=== PATIENT | male | born 1960 | race Caucasian/White ===

== ENCOUNTER 2018-05-09 08:01 | Day surgery (SDC) | payer OTHER ==
[2018-04-30 14:37] VITALS: BMI 31.8
[2018-05-09] MEDS ORDERED: PROPOFOL 20 ML ONE ×2 (09:34)
[2018-05-09 11:13] VITALS: TEMP 97.5
[2018-05-09 11:15] VITALS: BP 133/79; PULSE 66
--- NOTE | 2018-05-14 16:06 | PATH ---
Surgical Pathology Report Patient Name: MARITA IRAHETA [facility]. Rec. #: [id number] /Age/Gender: 1960 (Age: 58) / M Account: [id number] Location: [facility] Taken: 05/09/2018 Received: 05/09/2018 Reported: 05/14/2018 Physicians: Felipe Swanson M.D. Specimen(s) Received A: HEPATIC FLEXURE B: MID RIGHT COLON C: PROXIMAL RIGHT COLON D: DISTAL RIGHT COLON Clinical History Rule out colon cancer Postoperative diagnosis: Polyps Final Diagnosis A. HEPATIC FLEXURE, BIOPSY: HYPERPLASTIC POLYP. B. RIGHT COLON, BIOPSY: TUBULAR ADENOMA. C. PROXIMAL RIGHT COLON, BIOPSY: COLONIC MUCOSA SHOWING BENIGN/REACTIVE LYMPHOID AGGREGATES. D. DISTAL RIGHT COLON, BIOPSY : TUBULAR ADENOMA. Electronically Signed Erin Camilo M.D. Gross Description A. Received in formalin, labeled "hepatic flexure" is a dominique, irregular portion of soft tissue measuring 0.8 cm. in greatest dimension. The specimen is submitted in toto in one cassette. B. Received in formalin, labeled "mid right colon" is a dominique, irregular portion of soft tissue measuring 0.5 cm. in greatest dimension. The specimen is submitted in toto in one cassette. C. Received in formalin, labeled "proximal right colon" is a dominique, irregular portion of soft tissue measuring 0.9 cm. in greatest dimension. The specimen is submitted in toto in one cassette. D. Received in formalin, labeled "distal right colon" is a dominique, irregular portion of soft tissue measuring 0.6 cm. in greatest dimension. The specimen is submitted in toto in one cassette. 05/10/2018 saudi05/10/2018
== END 2018-05-09 11:10 | disposition home or self-care (01) ==
LOC: FASU-ENDO 08:01
PROVIDERS: ATTEND Internal Medicine Gastroenterology
PROC: 0DBL8ZX Excision of Transverse Colon, Via Natural or Artificial Opening Endoscopic, Diagnostic (ICD-10-PCS; 2018-05-09)
PROC: 0DBM8ZX Excision of Descending Colon, Via Natural or Artificial Opening Endoscopic, Diagnostic (ICD-10-PCS; 2018-05-09)
PROC: 0DBK8ZX Excision of Ascending Colon, Via Natural or Artificial Opening Endoscopic, Diagnostic (ICD-10-PCS; principal; 2018-05-09 09:15)
DX: K57.30 Diverticulosis of large intestine without perforation or abscess without bleeding (principal); D12.2 Benign neoplasm of ascending colon; K63.5 Polyp of colon; D12.4 Benign neoplasm of descending colon
CPT/HCPCS: 88305-TC